=== PATIENT | male | born 1990 | race African-American/Black ===

== ENCOUNTER 2017-03-24 12:57 | Emergency (ER) | payer MEDICAID ==
[~2017-03-24] VITALS: Ht 188 cm; Wt 99.8 kg
[2017-03-24 13:00] VITALS: BP_SYST 136
[2017-03-24 15:26] VITALS: BP_SYST 136
== END 2017-03-24 15:26 | disposition home or self-care (01) ==
LOC: SED 12:57
DX: H10.9 Unspecified conjunctivitis (principal)
CPT/HCPCS: 99283

== ENCOUNTER 2017-03-26 18:42 | Emergency (ER) | payer MEDICAID ==
[~2017-03-26] VITALS: Ht 188 cm; Wt 99.8 kg
[2017-03-26 19:03] VITALS: BP_SYST 130
== END 2017-03-26 19:42 | disposition home or self-care (01) ==
LOC: SED 18:42
DX: J01.90 Acute sinusitis, unspecified (principal); H10.9 Unspecified conjunctivitis
CPT/HCPCS: 99283

== ENCOUNTER 2018-05-18 11:49 | Emergency (ER) | payer MEDICAID ==
[~2018-05-18] VITALS: Ht 188 cm; Wt 104.3 kg
[2018-05-18 12:09] VITALS: BP_SYST 132
[2018-05-18] MEDS ORDERED: IBUPROFEN 800 MG TABLET PO ONE (13:45)
[2018-05-18 14:06] VITALS: BP_SYST 127
== END 2018-05-18 14:06 | disposition home or self-care (01) ==
LOC: SED 11:49
DX: S93.402A Sprain of unspecified ligament of left ankle, initial encounter (principal); R03.0 Elevated blood-pressure reading, without diagnosis of hypertension; X50.0XXA Overexertion from strenuous movement or load, initial encounter; Y93.67 Activity, basketball; Y92.89 Other specified places as the place of occurrence of the external cause; Y99.8 Other external cause status
CPT/HCPCS: 99284

== ENCOUNTER 2022-10-02 16:36 | Emergency (ER) | payer MEDICAID ==
[~2022-10-02] VITALS: Ht 188 cm; Wt 106.6 kg
[2022-10-02 17:27] VITALS: BP_SYST 124
[2022-10-02 18:47] LABS: BASOPHILS % (AUTO) 0.5 % (0.0-2.0); EOSINOPHILS # (AUTO) 0.1 K/uL (0.0-0.4); EOSINOPHILS % (AUTO) 1.6 % (0.0-4.0); HEMATOCRIT 47.1 % (36-54); HEMOGLOBIN 15.6 g/dL (14.0-18.0); LYMPHOCYTES # (AUTO) 2.1 K/uL (1.0-5.5); LYMPHOCYTES % (AUTO) 28.7 % (20.5-51.5); MEAN CORPUSCULAR HEMOGLOBIN 28 pg (27-31); MEAN CORPUSCULAR HGB CONC 33 % (32-36); MEAN CORPUSCULAR VOLUME 83 fL (79.0-98.0); MONOCYTES # (AUTO) 0.3 K/uL (0.0-1.0); MONOCYTES % (AUTO) 4.7 % (1.7-9.3); NEUTROPHILS # (AUTO) 4.7 K/uL (1.8-7.7); NEUTROPHILS % (AUTO) 64.5 % (40.0-70.0); PLATELET COUNT (AUTO) 205 K/uL (130-430); RED BLOOD CELL COUNT(AUTO) 5.66 MIL/uL (4.2-6.2); RED CELL DISTRIBUTION WIDTH 14.6 % (9.0-15.0); WHITE BLOOD COUNT (AUTO) 7.3 K/uL (4.8-10.8)
[2022-10-02 19:02] LABS: ANION GAP 8 (5-15); CALCIUM 9.1 mg/dL (8.4-11.0); CHLORIDE 104 mmol/L (98-107); CREATININE 0.98 mg/dL (0.55-1.30); GLUCOSE 93 mg/dL (70-99); UREA NITROGEN, BLOOD 15 mg/dL (8-21)
[2022-10-02 19:05] LABS: GFR AFRICAN AMERICAN 114 mL/min (>90)
[2022-10-02 19:07] LABS: ALANINE AMINOTRANSFERASE 24 U/L (12-78); ALBUMIN 4.1 g/dL (3.4-4.8); AMYLASE 56 U/L (0-100); ASPARTATE AMINOTRANSFERASE 16 U/L (10-37); LIPASE 44 U/L (73-393)
[2022-10-02 19:10] LABS: BILIRUBIN,URINE NEGATIVE (NEGATIVE); BLOOD, URINE NEGATIVE (NEGATIVE); COLOR,URINE YELLOW (YELLOW); GLUCOSE,URINE NEGATIVE (NEGATIVE); KETONES,URINE NEGATIVE (NEGATIVE); LEUKOCYTE ESTERASE ,URINE NEGATIVE (NEGATIVE); NITRITE, URINE NEGATIVE (NEGATIVE); PH,URINE 7.5 (5.0-8.0); PROTEIN URINE 1+ (NEGATIVE); UROBILINOGEN,URINE 0.2 (0.2-1.0)
[2022-10-02 19:28] LABS: C-REACTIVE PROTEIN QUANT < 0.2 mg/dL (0-0.5)
[2022-10-02 19:38] LABS: CLARITY/URINE HAZY (CLEAR)
[2022-10-02 19:39] LABS: RBC,URINE NONE SEEN /HPF (0-3)
[2022-10-02 19:40] LABS: BACTERIA,URINE FEW /HPF (None Seen); MUCUS,URINE None Seen /LPF (None Seen); URINE AMORPHOUS PHOSPHATES 3+ /HPF (None Seen)
[2022-10-02] MEDS ORDERED: HYDR-3917 PO (20:11)
[2022-10-02] MEDS ORDERED: IBUP-1971 PO (20:11)
[2022-10-02] MEDS ORDERED: AZITHROMYCIN 250 MG TABLET PO ONE (20:30)
[2022-10-02] MEDS ORDERED: cefTRIAXone 250 MG VIAL IM ONE (20:30)
[2022-10-02] MEDS ORDERED: LIDOCAINE 1%, 20 ML MDV 20 ML ONE (20:31)
[2022-10-02 20:41] VITALS: BP_SYST 150
--- NOTE | 2022-10-02 20:41 | NUR ---
Patient is alert and oriented x4, respirations even and unlabored, speaking in full sentences and ambulating with a steady gait. Denied any acute distress at this time. Okay for discharge per Dr. James. RN went over and provided a printed copy of the discharge instructions and prescriptions. ED and 911 precautions given. Patient verbalized understanding.
== END 2022-10-02 20:40 | disposition home or self-care (01) ==
LOC: SED 16:36
DX: R10.9 Unspecified abdominal pain (principal); R30.0 Dysuria; Z79.899 Other long term (current) drug therapy
CPT/HCPCS: 99285; 74176; 80053; 81000; 82150; 83690; 85025; 86140; 36415; 76376; 96372; 87491; J0696; J2001; Q0144